=== PATIENT | male | born 1960 | race Caucasian/White ===

== ENCOUNTER 2019-11-07 15:34 | Emergency (ER) | payer SELFPAY ==
[~2019-11-07] VITALS: Ht 188 cm; Wt 99.8 kg
[2019-11-07 15:59] VITALS: BP_SYST 157
--- NOTE | 2019-11-07 16:00 | NUR ---
Pt walked in to ER w/ c/o laceration to back/top of head. Reported feeling light-headed and then hitting his head on the corner of a cabinet. Denies LOC, n/v. Reports pain 09/11. Resting in bed, v/s stable, will continue to monitor.
--- NOTE | 2019-11-07 16:05 | NUR ---
ER Dr. Andino at bedside examining patient.
[2019-11-07] MEDS ORDERED: LIDOCAINE 1% 10 MG/ML, 20 ML MDV INJ ONE (16:15)
[2019-11-07] MEDS ORDERED: DIPH-TET-PERTUS Vaccine 0.5 ML VIAL (ADACEL) I.M. ONE (16:30)
--- NOTE | 2019-11-07 16:30 | NUR ---
cathy applied to scalp lac, by Dr. Andino. Pt tolerated well
--- NOTE | 2019-11-07 16:45 | NUR ---
Tetanus shot administered to AALIYAH, pt tolerated well.
[2019-11-07 16:51] VITALS: BP_SYST 121
--- NOTE | 2019-11-07 16:53 | NUR ---
Patient given written and verbal discharge instructions and verbalizes understanding. ER MD discussed with patient the results and treatment provided. Patient in stable condition. ID arm band removed. Patient educated on pain management and to follow up with PMD. Pain Scale 0/10. Opportunity for questions provided and answered. Medication side effect fact sheet provided.
[2019-11-07] MEDS ORDERED: BACITRACIN 1 GM OINT TP ONE (16:59)
== END 2019-11-07 16:51 | disposition home or self-care (01) ==
LOC: SED 15:34
DX: S01.81XA Laceration without foreign body of other part of head, initial encounter (principal); W22.8XXA Striking against or struck by other objects, initial encounter; Y93.89 Activity, other specified; Y92.89 Other specified places as the place of occurrence of the external cause; Y99.8 Other external cause status
CPT/HCPCS: 12002; 90471; 90715; 99283; J2001

== ENCOUNTER 2019-11-15 14:35 | Emergency (ER) | payer SELFPAY ==
[~2019-11-15] VITALS: Ht 190.5 cm; Wt 102.1 kg
[2019-11-15 15:07] VITALS: BP_SYST 125
--- NOTE | 2019-11-15 15:08 | NUR ---
Patient to TRIAGE for evaluation. Side rails up.
--- NOTE | 2019-11-15 15:09 | NUR ---
MAXIMILIAN Dsouza at bedside examining patient.
--- NOTE | 2019-11-15 15:10 | NUR ---
PT ELLIA REMOVED TOTAL 6
[2019-11-15 15:12] VITALS: BP_SYST 125
--- NOTE | 2019-11-15 15:13 | NUR ---
Patient given written and verbal discharge instructions and verbalizes understanding. ER MD discussed with patient the results and treatment provided. Patient in stable condition. ID arm band removed. no Rx given. Patient educated on pain management and to follow up with PMD. Pain Scale 0. Opportunity for questions provided and answered. Medication side effect fact sheet provided.
== END 2019-11-15 15:12 | disposition home or self-care (01) ==
LOC: SED 14:35
DX: Z48.02 Encounter for removal of sutures (principal)
CPT/HCPCS: 99281